=== PATIENT | male | born 1985 | race Caucasian/White ===

== ENCOUNTER 2018-11-06 00:42 | Emergency (ER) | payer SELFPAY ==
[2018-11-06] MEDS ORDERED: NACL 0.9% 1000 ML 1,000 ML IV ONE (01:33)
[2018-11-06] MEDS ORDERED: TORADOL IV ONE (01:33)
[2018-11-06] MEDS ORDERED: DILAUDID IV ONE (01:33)
[2018-11-06] MEDS ORDERED: ZOFRAN IV ONE (01:33)
--- NOTE | 2018-11-06 01:34 | Emergency Department Report ---
ED General Adult HPI - General Chief complaint: Abdominal Pain Stated complaint: RT FLANK PAIN Time Seen by Provider: 11/06/18 01:29 Source: patient, RN notes reviewed Mode of arrival: Ambulatory Limitations: No Limitations - History of Present Illness Initial comments: This is a 33-year-old gentleman who is not known to this provider previously, does not have a primary care doctor, reports no chronic medical conditions, and reports no history of abdominal surgeries, presented to the ER with sudden nontraumatic right-sided sharp flank pain. This pain has been present for a few hours. It is constant. It does not move anywhere. It increased with palpation. Decreased with rest. Positive nausea, no vomiting, no testicular pain, no dysuria, increased urinary frequency, uncertain if hematuria. Denies other complaints. -: Sudden Location: back, right Quality: stabbing, aching, constant Consistency: constant Improves with: medication, rest Worsens with: movement Associated Symptoms: loss of appetite, malaise, nausea/vomiting. denies: confusion, chest pain, cough, diaphoresis, fever/chills, headaches, rash, seizure, shortness of breath, syncope - Related Data Previous Rx's Medication Instructions Recorded Last Taken Type Ibuprofen [Motrin] 600 mg PO Q8H PRN #30 tablet 11/06/18 Unknown Rx Ondansetron [Zofran Odt] 4 mg PO Q8HR PRN #20 tab.rapdis 11/06/18 Unknown Rx Tamsulosin [Flomax] 0.4 mg PO QDAY #30 cap 11/06/18 Unknown Rx oxyCODONE [Roxicodone] 5 mg PO Q6HR PRN #15 tablet 11/06/18 Unknown Rx Allergies Allergy/AdvReac Type Severity Reaction Status Date / Time No Known Allergies Allergy Verified 11/06/18 01:08 ED Review of Systems ROS: Stated complaint: RT FLANK PAIN Other details as noted in HPI Constitutional: malaise. denies: diaphoresis, fever Eyes: denies: eye discharge ENT: denies: epistaxis Respiratory: denies: cough Cardiovascular: denies: chest pain Gastrointestinal: abdominal pain, nausea Genitourinary: frequency. denies: testicular pain Musculoskeletal: back pain Skin: denies: lesions Neurological: weakness Psychiatric: anxiety ED Past Medical Hx - Past Medical History Previous Medical History?: No - Surgical History Past Surgical History?: No - Social History Smoking Status: Never Smoker Substance Use Type: None - Medications Home Medications: Home Medications Medication Instructions Recorded Confirmed Last Taken Type Ibuprofen [Motrin] 600 mg PO Q8H PRN #30 tablet 11/06/18 Unknown Rx Ondansetron [Zofran Odt] 4 mg PO Q8HR PRN #20 tab.rapdis 11/06/18 Unknown Rx Tamsulosin [Flomax] 0.4 mg PO QDAY #30 cap 11/06/18 Unknown Rx oxyCODONE [Roxicodone] 5 mg PO Q6HR PRN #15 tablet 11/06/18 Unknown Rx ED Physical Exam - General Limitations: No Limitations General appearance: alert, anxious, obese - Head Head exam: Present: atraumatic, normocephalic - Eye Eye exam: Present: normal appearance, EOMI. Absent: nystagmus - ENT ENT exam: Present: normal exam, normal orophraynx, mucous membranes moist, normal external ear exam - Neck Neck exam: Present: normal inspection, full ROM. Absent: tenderness, meningismus - Respiratory Respiratory exam: Present: normal lung sounds bilaterally. Absent: respiratory distress - Cardiovascular Cardiovascular Exam: Present: regular rate, normal rhythm, normal heart sounds. Absent: bradycardia, tachycardia, irregular rhythm, systolic murmur, diastolic murmur, rubs, gallop - GI/Abdominal GI/Abdominal exam: Present: soft, tenderness, other (right flank tenderness, right CVA tenderness). Absent: distended, guarding, rebound, rigid, pulsatile mass - Rectal Rectal exam: Present: deferred - exam: Present: normal inspection, other (there is no testicular tenderness. There is normal testicular lie bilaterally. There is normal cremasteric reflex bilaterally.). Absent: testicular tenderness External exam: Present: normal external exam, other (chaperoned by nurse Denise Stack) - Extremities Exam Extremities exam: Present: normal inspection, full ROM, other (2+ pulses noted in the bilateral upper, lower extremities. Compartments soft. No long bony tenderness. The pelvis is stable.). Absent: pedal edema, calf tenderness - Back Exam Back exam: Present: normal inspection, full ROM, CVA tenderness (R). Absent: tenderness, CVA tenderness (L), paraspinal tenderness, vertebral tenderness - Neurological Exam Neurological exam: Present: alert, oriented X3, CN II-XII intact, normal gait, other (Extraocular movements intact. Tongue midline. No facial droop. Facial sensation intact to light touch in the V1, V2, V3 distribution bilaterally. 5 and 5 strength in 4 extremities.. Sensation is intact to light touch in 4 extremities.). Absent: motor sensory deficit - Psychiatric Psychiatric exam: Present: anxious - Skin Skin exam: Present: warm, dry, intact, normal color. Absent: rash ED Course Vital Signs 11/06/18 11/06/18 01:03 03:07 Temperature 98.7 F Pulse Rate 73 Respiratory 20 16 Rate Blood Pressure 164/103 O2 Sat by Pulse 99 97 Oximetry - Reevaluation(s) Reevaluation #1: 11/06/18 02:12 Differential diagnosis, including but not limited to: Renal colic, inflammatory bowel disease, appendicitis, colitis Assessment and plan: 33-year-old gentleman who appears uncomfortable, no pulsatile mass, right-sided abdominal pain, right CVA tenderness, suspect first episode of renal colic. We will treat his symptoms, obtain screening laboratory studies, obtaining noncontrast CT scan of the abdomen and pelvis, and reassess. Reevaluation #2: 11/06/18 04:15 Reassessed. Patient feels much improved. No active vomiting. CT scan demonstrates following pertinent findings: IMPRESSION: There is a 2 millimeter stone at the right ureteral vesicle junction. There is mild right hydronephrosis.. Leukocytosis reviewed and appreciated. This is most likely a stress emargination. Patient is tolerating liquid feeds and reports readiness for discharge. Urinalysis is pending at this time. ED Medical Decision Making - Lab Data Result diagrams: 11/06/18 01:51 11/06/18 01:51 Vital Signs 11/06/18 01:03 Temperature 98.7 F Pulse Rate 73 Respiratory 20 Rate Blood Pressure 164/103 O2 Sat by Pulse 99 Oximetry - Radiology Data Radiology results: report reviewed, image reviewed Ordering Physician: KEVIN HOLDER MD Date of Service: 11/06/18 Procedure(s): CT abdomen pelvis wo con Accession Number(s): [id number] cc: KEVIN HOLDER MD FINAL REPORT PROCEDURE: CT ABDOMEN PELVIS WO CON TECHNIQUE: Computerized axial tomography of the abdomen and pelvis was performed without intravenous contrast. This study is performed without intravascular contrast material and its sensitivity for abdominal and pelvic pathology, including neoplasms, inflamm ation, abscess, free fluid, thrombosis, arterial dissection and infarction, is reduced compared with a contrast enhanced study. HISTORY: right flank pain, questionable renal colic COMPARISON: No prior studies are available for comparison. FINDINGS: Visualized lower thorax: No significant abnormality. Liver: Normal size and attenuation. Spleen: Normal size and attenuation. Gallbladder and biliary system: Normal. Pancreas: Normal. Adrenals: Normal. Kidneys: There is a 2 millimeter stone at the right ureteral vesicle junction. There is mild right hydronephrosis.. GI tract: There is no bowel obstruction, colitis or enteritis. The appendix is normal.. Lymph nodes and mesentery: Normal. Vasculature: Normal. Bladder: Normal. Reproductive organs: Normal. Peritoneum: There is no ascites or free air, abscess or adenopathy. Musculoskeletal structures: No significant abnormality. Other: None. IMPRESSION: There is a 2 millimeter stone at the right ureteral vesicle junction. There is mild right hydronephrosis.. There is no bowel obstruction, colitis or enteritis. The appendix is normal.. There is no ascites or free air, abscess or adenopathy. . Transcribed By: CO Dictated By: STEVEN GARAY MD Electronically Authenticated By: STEVEN GARAY MD Signed Date/Time: 11/06/18 0302 Critical care attestation.: If time is entered above; I have spent that time in minutes in the direct care of this critically ill patient, excluding procedure time. ED Disposition Clinical Impression: Renal colic on right side Disposition: DC-01 TO HOME OR SELFCARE Is pt being admited?: No Does the pt Need Aspirin: No Condition: Stable Instructions: Renal Colic (ED) Additional Instructions: Symptoms likely coming from kidney stone. Increased water consumption to 6-8 cups of water per day. Take the medications as needed/directed. Take the Flomax medication at night. This medication may make the patient dizzy, light headed. If taking the oxycodone, do not drive, operate motor vehicles, or make important decisions. Oxycodone may also make the patient lightheaded, dizzy. Follow-up with the urology specialist within the next 2-3 weeks. Return to the ER right away with new pain, worsened pain, migration of pain, projectile vomiting, change in mental status, confusion, inability to speak, inability to breathe, new, worsening or different symptoms. Sntomas probablemente provenientes de clculos renales. Aumento del consumo de agua a 6-8 tazas de agua por da. Dexter los medicamentos segn sea necesario / d irigido. Dexter el medicamento flomax por la noche. Lyubov medicamento puede hacer que el paciente se sienta mareado, aturdido. Si josé antonio la oxicodona, no conduzca, opere vehculos motorizados ni tome decisiones importantes. La oxicodona tambin puede hacer que el paciente se sienta mareado. Denae un seguimiento con el especialista en urologa dentro de las siguientes 2 a 3 semanas. Regrese de inmediato a la teressa de emergencias con dolor nuevo, dolor empeorado, migracin del vmito, vmitos con proyectiles, cambios en el estado mental, confusin, incapacidad para hablar, incapacidad para respirar, sntomas nuevos, que empeoran o diferentes. Referrals: PRIMARY CARE,MD [Primary Care Provider] - 3-5 Days [facility] [Provider Group] - 7-10 days Forms: Work/School Release Form(ED) Print Language: SYRIAC
[2018-11-06 02:20] LABS: Hematocrit 40.1 % (35.5-45.6); Hemoglobin 13.3 gm/dl (11.8-15.2); Mean Corpuscular HGB Conc 33 % (32-34); Mean Corpuscular Volume 78 fl (84-94); Platelet Count 173 K/mm3 (140-440); Red Blood Count 5.14 M/mm3 (3.65-5.03); Red Cell Distribution Width 14.1 % (13.2-15.2)
[2018-11-06 02:36] LABS: BUN/Creatinine Ratio 21; Blood Urea Nitrogen 17 mg/dL (9-20); Calcium 8.9 mg/dL (8.4-10.2); Hemolysis Index 32
[2018-11-06] MEDS ORDERED: K-DUR PO ONE (02:49)
--- NOTE | 2018-11-06 03:02 | Cat Scan Report ---
FINAL REPORT PROCEDURE: CT ABDOMEN PELVIS WO CON TECHNIQUE: Computerized axial tomography of the abdomen and pelvis was performed without intravenous contrast. This study is performed without intravascular contrast material and its sensitivity for ab dominal and pelvic pathology, including neoplasms, inflammation, abscess, free fluid, thrombosis, art erial dissection and infarction, is reduced compared with a contrast enhanced study. HISTORY: right flank pain, questionable renal colic COMPARISON: No prior studies are available for comparison. FINDINGS: Visualized lower thorax: No significant abnormality. Liver: Normal size and attenuation. Spleen: Normal size and attenuation. Gallbladder and biliary system: Normal. Pancreas: Normal. Adrenals: Normal. Kidneys: There is a 2 millimeter stone at the right ureteral vesicle junction. There is mild right hy dronephrosis.. GI tract: There is no bowel obstruction, colitis or enteritis. The appendix is normal.. Lymph nodes and mesentery: Normal. Vasculature: Normal. Bladder: Normal. Reproductive organs: Normal. Peritoneum: There is no ascites or free air, abscess or adenopathy. Musculoskeletal structures: No significant abnormality. Other: None. IMPRESSION: There is a 2 millimeter stone at the right ureteral vesicle junction. There is mild right hydronephro sis.. There is no bowel obstruction, colitis or enteritis. The appendix is normal.. There is no ascites or free air, abscess or adenopathy. .
[2018-11-06] MEDS: KCL 10MEQ/100ML 10 MEQ/100 ML BAG IV SCH ×2 (03:35→04:50)
[2018-11-06 04:13] LABS: Bilirubin,Urine NEG (Negative); Blood,Urine LG (Negative); Color,Urine Yellow (Yellow); Mucus,Urine FEW /HPF; Protein,Urine <15 mg/dL mg/dL (Negative); Urobilinogen,Urine < 2.0 mg/dL (<2.0)
[2018-11-06 04:15] LABS: RBC,Urine > 182.0 /HPF (0.0-6.0)
[2018-11-06 04:20] VITALS: BP 117/66
[2018-11-06] MEDS ORDERED: NACL 0.9% 250ML 250 ML IV ONE (04:52)
== END 2018-11-06 06:03 | disposition home or self-care (01) ==
LOC: ED 00:42
DX: N23 Unspecified renal colic (principal); F41.9 Anxiety disorder, unspecified
CPT/HCPCS: 36415; 74176; 80048; 81001; 82550; 85027; 96361; 96365; 96375; 99284; J1170; J1885; J2405; J3480; J7030; J7050